=== PATIENT | male | born 1955 | race Caucasian/White ===

== ENCOUNTER 2016-08-30 09:17 | Outpatient (CLI) ==
[2013-02-04 18:54] VITALS: TEMP 97
[2015-08-29 22:05] VITALS: BMI 37.3
[2016-08-30 09:43] LABS: BASOPHILS # (AUTO) 0.1 K/uL (0-0.2); BASOPHILS % (AUTO) 0.9 % (0.0-3.0); EOSINOPHILS # (AUTO) 0.3 K/ul (0.0-0.7); EOSINOPHILS % (AUTO) 3.1 % (0.0-7.0); HEMATOCRIT 46.8 % (42.0-52.0); HEMOGLOBIN 15.2 g/dl (14.0-18.0); IMMATURE GRANULOCYTE % (AUTO) 0.5 % (0.0-5.0); LYMPHOCYTES # (AUTO) 3.1 K/uL (0.60-3.4); LYMPHOCYTES % (AUTO) 37.4 (10.0-50.0); MEAN CORPUSCULAR HEMOGLOBIN 28.2 pg (27.0-31.0); MEAN CORPUSCULAR HGB CONC 32.5 (31.8-35.4); MEAN CORPUSCULAR VOLUME 86.8 fl (80.0-94.0); MONOCYTES # (AUTO) 0.8 K/uL (0.4-2.0); MONOCYTES % (AUTO) 9.8 (0-10); NEUTROPHILS % (AUTO) 48.3; PLATELET COUNT 261 10^3/uL (140-440); RED BLOOD COUNT 5.39 10^6/ul (4.70-6.10); WHITE BLOOD COUNT 8.16 K/ul (4.2-10.2)
[2016-08-30 10:16] LABS: ERYTHROCYTE SEDIMENTATION RATE 17 mm/hr (0-15); ESR INTERNAL QC INTERNAL QC VALID
[2016-08-30 10:40] LABS: ALBUMIN 3.8 g/dL (3.4-5.0); ALBUMIN/GLOBULIN RATIO 0.97; ANION GAP 15.2; BILIRUBIN,TOTAL 0.54 mg/dL (0.00-1.20); BUN/CREATININE RATIO 12.21; CALCIUM 9.5 mg/dL (8.2-10.2); CHOL/HDL RATIO 7.8 (4.5-6.4); CREATININE 1.31 mg/dL (0.60-1.10); FOLATE 14.4 ng/mL (3.1-20.5); MAGNESIUM 2.5 mg/dL (1.7-2.2); POTASSIUM 4.2 mmol/L (3.5-5.1); TOTAL PROTEIN 7.7 g/dL (6.4-8.2)
== END 2016-08-30 09:18 | disposition home or self-care (01) ==
LOC: LAB 09:17
PROVIDERS: ATTEND Psychiatry & Neurology Neurology
DX: R51 Headache (principal); I10 Essential (primary) hypertension
CPT/HCPCS: 80053; 80061; 82607; 82746; 83735; 84439; 85025; 85651

== ENCOUNTER 2016-11-23 08:36 | Outpatient (CLI) | payer OTHER ==
[2013-02-04 18:54] VITALS: TEMP 97
[2015-08-29 22:05] VITALS: BMI 37.3
[2016-11-23 09:01] LABS: BASOPHILS # (AUTO) 0.1 K/uL (0-0.2); BASOPHILS % (AUTO) 0.5 % (0.0-3.0); EOSINOPHILS # (AUTO) 0.3 K/ul (0.0-0.7); EOSINOPHILS % (AUTO) 1.9 % (0.0-7.0); HEMATOCRIT 48.4 % (42.0-52.0); HEMOGLOBIN 16.1 g/dl (14.0-18.0); IMMATURE GRANULOCYTE % (AUTO) 0.5 % (0.0-5.0); LYMPHOCYTES # (AUTO) 2.7 K/uL (0.60-3.4); LYMPHOCYTES % (AUTO) 21.1 (10.0-50.0); MEAN CORPUSCULAR HEMOGLOBIN 28.8 pg (27.0-31.0); MEAN CORPUSCULAR HGB CONC 33.3 (31.8-35.4); MEAN CORPUSCULAR VOLUME 86.6 fl (80.0-94.0); MONOCYTES # (AUTO) 0.9 K/uL (0.4-2.0); MONOCYTES % (AUTO) 7.3 (0-10); NEUTROPHILS # (AUTO) 8.9 K/ul (2.0-6.9); NEUTROPHILS % (AUTO) 68.7; PLATELET COUNT 295 10^3/uL (140-440); RED BLOOD COUNT 5.59 10^6/ul (4.70-6.10); WHITE BLOOD COUNT 12.94 K/ul (4.2-10.2)
[2016-11-23 09:45] LABS: ALBUMIN 3.9 g/dL (3.4-5.0); ALBUMIN/GLOBULIN RATIO 1.03; ANION GAP 14.3; BILIRUBIN,TOTAL 0.4 mg/dL (0.00-1.20); BUN/CREATININE RATIO 18.38; CALCIUM 9.7 mg/dL (8.2-10.2); CHOL/HDL RATIO 5.3 (4.5-6.4); CREATININE 1.36 mg/dL (0.60-1.10); POTASSIUM 4.3 mmol/L (3.5-5.1); TOTAL PROTEIN 7.7 g/dL (6.4-8.2)
== END 2016-11-23 08:37 | disposition home or self-care (01) ==
LOC: LAB 08:36
PROVIDERS: ATTEND Emergency Medicine
DX: E11.9 Type 2 diabetes mellitus without complications (principal); E78.5 Hyperlipidemia, unspecified; I50.9 Heart failure, unspecified; N18.9 Chronic kidney disease, unspecified; I42.9 Cardiomyopathy, unspecified
CPT/HCPCS: 36415; 80053; 80061; 83036; 84443; 85025

== ENCOUNTER 2017-03-07 09:40 | Outpatient (CLI) ==
[2013-02-04 18:54] VITALS: TEMP 97
[2015-08-29 22:05] VITALS: BMI 37.3
[2017-03-07 13:26] LABS: BASOPHILS # (AUTO) 0.1 K/uL (0-0.2); BASOPHILS % (AUTO) 0.7 % (0.0-3.0); EOSINOPHILS # (AUTO) 0.3 K/ul (0.0-0.7); EOSINOPHILS % (AUTO) 3.5 % (0.0-7.0); HEMATOCRIT 45.4 % (42.0-52.0); HEMOGLOBIN 14.8 g/dl (14.0-18.0); IMMATURE GRANULOCYTE % (AUTO) 0.5 % (0.0-5.0); LYMPHOCYTES # (AUTO) 2.4 K/uL (0.60-3.4); LYMPHOCYTES % (AUTO) 28.1 (10.0-50.0); MEAN CORPUSCULAR HEMOGLOBIN 28.5 pg (27.0-31.0); MEAN CORPUSCULAR HGB CONC 32.6 (31.8-35.4); MEAN CORPUSCULAR VOLUME 87.5 fl (80.0-94.0); MONOCYTES # (AUTO) 0.8 K/uL (0.4-2.0); MONOCYTES % (AUTO) 9.1 (0-10); NEUTROPHILS # (AUTO) 4.9 K/ul (2.0-6.9); NEUTROPHILS % (AUTO) 58.1; PLATELET COUNT 239 10^3/uL (140-440); RED BLOOD COUNT 5.19 10^6/ul (4.70-6.10); WHITE BLOOD COUNT 8.37 K/ul (4.2-10.2)
[2017-03-07 13:57] LABS: ALBUMIN 3.8 g/dL (3.4-5.0); ANION GAP 18.2; BILIRUBIN,TOTAL 0.23 mg/dL (0.00-1.20); BUN/CREATININE RATIO 15.82; CALCIUM 9.4 mg/dL (8.2-10.2); CHOL/HDL RATIO 4.6 (4.5-6.4); CREATININE 1.39 mg/dL (0.60-1.10); POTASSIUM 4.2 mmol/L (3.5-5.1); TOTAL PROTEIN 7.6 g/dL (6.4-8.2)
== END 2017-03-07 09:41 | disposition home or self-care (01) ==
LOC: LAB 09:40
PROVIDERS: ATTEND Emergency Medicine
DX: I13.0 Hypertensive heart and chronic kidney disease with heart failure and stage 1 through stage 4 chronic kidney disease, or unspecified chronic kidney disease (principal); E11.22 Type 2 diabetes mellitus with diabetic chronic kidney disease; N18.9 Chronic kidney disease, unspecified; I50.9 Heart failure, unspecified; I25.10 Atherosclerotic heart disease of native coronary artery without angina pectoris
CPT/HCPCS: 36415; 80053; 80061; 83036; 84443; 85025

== ENCOUNTER 2017-06-11 06:26 | Outpatient (CLI) ==
[2015-08-29 22:05] VITALS: BMI 37.3
[2017-06-11 06:45] LABS: HEMATOCRIT 44.5 % (42.0-52.0); HEMOGLOBIN 15.1 g/dl (14.0-18.0); MEAN CORPUSCULAR HEMOGLOBIN 29.3 pg (27.0-31.0); MEAN CORPUSCULAR HGB CONC 33.9 (31.8-35.4); MEAN CORPUSCULAR VOLUME 86.2 fl (80.0-94.0); RED BLOOD COUNT 5.16 10^6/ul (4.70-6.10); WHITE BLOOD COUNT 10.28 K/ul (4.2-10.2)
[2017-06-11 07:23] LABS: ALBUMIN 3.6 g/dL (3.4-5.0); ALBUMIN/GLOBULIN RATIO 0.97; ANION GAP 15.1; BILIRUBIN,TOTAL 0.34 mg/dL (0.00-1.20); BUN/CREATININE RATIO 19.37; CALCIUM 10.1 mg/dL (8.2-10.2); CHOL/HDL RATIO 4.5 (4.5-6.4); CREATININE 1.29 mg/dL (0.60-1.10); POTASSIUM 4.1 mmol/L (3.5-5.1); TOTAL PROTEIN 7.3 g/dL (6.4-8.2)
[2017-06-11] MEDS: DOBUTAMINE 250 ML IV ONE (08:42)
[2017-06-11] MEDS: ATROPINE SULFATE PFS ONE (08:43)
--- NOTE | 2017-06-11 09:35 | NM ---
EXAM: Myocardial perfusion imaging HISTORY: Chest pain COMPARISON: Myocardial imaging on 09/21/2010 showed dilated left ventricle with low ejection fraction of 24% and diffuse hypokinesis. No reversible ischemia. Old inferior wall myocardial infarction. TECHNIQUE: Patient was injected 4.16 mCi of thallium 201 chloride intravenously while at rest. SPECT imaging of the heart was acquired. Patient was stressed using dobutamine protocol and injected 25.2 mCi of Tc99m Sestamibi intravenously. Another SPECT imaging of the heart was performed. Gated card iac study was also acquired. FINDINGS: Post stress images show dilated left ventricular cavity. There is a large old inferior wal l infarction. Myocardial perfusion is otherwise unremarkable. No evidence of reversible ischemia. Left ventricular ejection fraction is 45%. Inferior wall is almost akinetic. IMPRESSION: 1. SPECT myocardial imaging shows no evidence of reversible ischemia. 2. Old inferior wall infarct. 3. Dilated left ventricle with ejection fraction of 45%. Almost akinetic inferior wall.
--- NOTE | 2017-06-12 10:54 | DOBSTECHST ---
Ordering Physician: RUBIA CHERY Date of Test: Reason for Examination: CHF, CARDIOMYOPATHY, CAD, DM, HTN Current Medications: SIMVASTATIN, AMLODIPINE, INVOKANA, FENOFIBRATE, LANTUS, VASCEPA, CYMBALTA, CRESTOR, NITROSTAT, OMEPRAZOLE, IMITREX, METOPROLOL, ATIVAN, GABAPENTIN, NORCO Height: 72" Weight: 272 LBS Target Heart Rate: 136/161 ST Segment Stage Time HR BPM BP mmhg Rhythm +/- Up Down Comments/Symptoms Control Sitting 43 160/92 SR X NONE Dobutamine 250mg/D5W 5cmg/KG/mn 10cmg/KG/mn 3" 48 165/95 SR X NONE 15cmg/KG/mn 2" 50 158/82 SR X NONE 20cmg/KG/mn 2" 56 150/72 SR X NONE 25cmg/KG/mn 2" 65 152/70 SR X NONE 30cmg/KG/mn 2" 97 160/80 SR X .25 CC ATROPINE 35cmg/KG/mn :15 100 SR X 40cmg/KG/mn Time: 3" HR B/P Time: 6" HR B/P Time: 9" HR B/P Recovery 71 150/82 Recovery 69 145/70 Recovery 60 Total Time: 11:15 Maximum Heart Rate Reached: 100 __ Interpretation: 1. NO EVIDENCE OF ISCHEMIA BY ST-T WAVE (HEART RATE 48 BPM TO 100 BPM WITH DOBUTAMINE) 2. NO CHEST PAIN OR DISCOMFORT 3. HYPOKINETIC LEFT VENTRICLE WITH IMPROVED LEFT VENTRICULAR CONTRACTILITY WITH DOBUTAMINE INFUSION SESTAMIBI TO FOLLOW MTDD
--- NOTE | 2017-06-12 10:57 | ECHOSTRESS ---
Date of Exam: 06/11/17 Ordering Physician: RUBIA CHERY Reason for Echo: CHF, CARDIOMYOPATHY, CAD, DM, HTN, DOBUTAMINE STRESS--NO ISCHEMIA M-Mode Normal Adult Results LV Dimensions Normal Adult Results AoV Opening excursions >1.6 LVEDD-base- 3.5-5.8 Ao root dimensions 2.0-3.7 LVESD-base- 3.1-4.6 L. Atrium dimensions 1.9-3.8 Post. Wall thickness 0.8-1.1 IV septum (thickness) 0.7-1.2 Post. Wall excursion 0.72-1.3 Septal motion Systolic motion R. Ventricular cavity 1.5-2.0 LVEF 60% Paradoxical septal wall motion 2-D: HYPOKINETIC LEFT VENTRICLE AT REST WITH IMPROVED CONTRACTILITY WITH DOBUTAMINE INFUSION M-MODE: MV: AV: TV: PV: CHAMBER SIZE: WALL MOTION: HYPOKINETIC LEFT VENTRICLE AT REST WITH IMPROVED CONTRACTILITY WITH DOBUTAMINE INFUSION PERICARDIUM: INTERPRETATION: 1. HYPOKINETIC LEFT VENTRICLE AT REST WITH IMPROVED CONTRACTILITY WITH DOBUTAMINE INFUSION MTDD
== END 2017-06-11 06:27 | disposition home or self-care (01) ==
LOC: CAR 06:26
PROVIDERS: ATTEND Emergency Medicine
DX: E11.9 Type 2 diabetes mellitus without complications (principal); I50.9 Heart failure, unspecified; R06.02 Shortness of breath; I25.10 Atherosclerotic heart disease of native coronary artery without angina pectoris; E78.5 Hyperlipidemia, unspecified; I10 Essential (primary) hypertension; F41.8 Other specified anxiety disorders
CPT/HCPCS: 36415; 80053; 80061; 83036; 84443; 85027

== ENCOUNTER 2017-09-27 12:51 | Outpatient (CLI) ==
[2013-02-04 18:54] VITALS: TEMP 97
[2015-08-29 22:05] VITALS: BMI 37.3
== END 2017-09-27 12:52 | disposition home or self-care (01) ==
LOC: LAB 12:51
PROVIDERS: ATTEND Emergency Medicine
DX: E78.5 Hyperlipidemia, unspecified (principal); E11.9 Type 2 diabetes mellitus without complications; I10 Essential (primary) hypertension; F41.8 Other specified anxiety disorders; Z12.5 Encounter for screening for malignant neoplasm of prostate
CPT/HCPCS: 36415; 80053; 80061; 83036; 84443; 85025

== ENCOUNTER 2017-11-14 09:04 | Outpatient (CLI) ==
[2013-02-04 18:54] VITALS: TEMP 97
[2015-08-29 22:05] VITALS: BMI 37.3
--- NOTE | 2017-11-14 09:57 | DI ---
EXAM: Right toes, three views, 11/14/2017 HISTORY: Sore on the first digit COMPARISON: None. FINDINGS / IMPRESSION: There is a small bony fragment at the lateral aspect of the base of the proxi mal phalanx of the great toe. This can be seen on the oblique image. This appears chronic. There i s no evidence of acute fracture or dislocation. Normal anatomic alignment is maintained. Question edema or possible soft tissue defect along the undersurface of the great toe. Correlate wit h physical exam. No acute osseous abnormality.
--- NOTE | 2017-11-14 09:59 | DI ---
EXAM: Left toes three-view HISTORY: Sore on first digit COMPARISON: None FINDINGS: No fracture or dislocation. No cortical destruction identified to suggest osteomyelitis. Mild osteoarthritis first MTP joint. Small plantar calcaneal spur. No focal soft tissue abnormality. IMPERSSION: Mild osteoarthritis first MTP joint.
== END 2017-11-14 09:05 | disposition home or self-care (01) ==
LOC: RAD 09:04 → RHC-LAB 09:05
PROVIDERS: ATTEND Nurse Practitioner Family
DX: T14.8XXA Other injury of unspecified body region, initial encounter (principal); E11.621 Type 2 diabetes mellitus with foot ulcer; L84 Corns and callosities
CPT/HCPCS: 36415; 80053; 85025; 85651; 87070

== ENCOUNTER 2017-11-21 09:15 | Outpatient (CLI) | payer OTHER ==
[2013-02-04 18:54] VITALS: TEMP 97
[2015-08-29 22:05] VITALS: BMI 37.3
== END 2017-11-21 09:16 | disposition home or self-care (01) ==
LOC: WOUND 09:15
PROVIDERS: ATTEND Nurse Practitioner Family
DX: E11.621 Type 2 diabetes mellitus with foot ulcer (principal); L97.512 Non-pressure chronic ulcer of other part of right foot with fat layer exposed; L97.522 Non-pressure chronic ulcer of other part of left foot with fat layer exposed; I10 Essential (primary) hypertension; J44.9 Chronic obstructive pulmonary disease, unspecified; I50.9 Heart failure, unspecified

== ENCOUNTER 2017-11-28 08:25 | Outpatient (CLI) | payer OTHER ==
[2013-02-04 18:54] VITALS: TEMP 97
[2015-08-29 22:05] VITALS: BMI 37.3
== END 2017-11-28 08:26 | disposition home or self-care (01) ==
LOC: WOUND 08:25
PROVIDERS: ATTEND Nurse Practitioner Family
DX: E11.621 Type 2 diabetes mellitus with foot ulcer (principal); L97.512 Non-pressure chronic ulcer of other part of right foot with fat layer exposed; L97.522 Non-pressure chronic ulcer of other part of left foot with fat layer exposed; I10 Essential (primary) hypertension; J44.9 Chronic obstructive pulmonary disease, unspecified; I50.9 Heart failure, unspecified
CPT/HCPCS: 11042; 97597

== ENCOUNTER 2017-12-05 09:07 | Outpatient (CLI) | payer OTHER ==
[2013-02-04 18:54] VITALS: TEMP 97
[2015-08-29 22:05] VITALS: BMI 37.3
== END 2017-12-05 09:08 | disposition home or self-care (01) ==
LOC: WOUND 09:07
PROVIDERS: ATTEND Nurse Practitioner Family
DX: E11.621 Type 2 diabetes mellitus with foot ulcer (principal); L97.512 Non-pressure chronic ulcer of other part of right foot with fat layer exposed; L97.522 Non-pressure chronic ulcer of other part of left foot with fat layer exposed; I10 Essential (primary) hypertension; J44.9 Chronic obstructive pulmonary disease, unspecified; I50.9 Heart failure, unspecified
CPT/HCPCS: 11042; 87070; 87186; 97597; 99213

== ENCOUNTER 2017-12-07 07:39 | Outpatient (CLI) | payer OTHER ==
[2013-02-04 18:54] VITALS: TEMP 97
[2015-08-29 22:05] VITALS: BMI 37.3
--- NOTE | 2017-12-07 13:59 | NM ---
EXAM: Three-phase bone scan HISTORY: Left great toe ulcer COMPARISON: Radiographs of the left toes showed mild osteoarthritis that first metatarsal phalangeal joint. TECHNIQUE: Patient was injected 27 mCi of technetium 99m HDP intravenously. Flow study of distal low er extremities including feet were acquired, followed by blood pool images 10 minutes later and delay ed images 3 hours later. Radiographs of the right toes on 11/14/2017 showed no acute osseous abnormal ity. FINDINGS: There is a significant hyperemia in the projection of the right great toe. There is increa sed blood pool activity in this region. Delayed images demonstrate focus of increased activity invol ving the distal phalanx of the right great toe as well as distal interphalangeal joint. IMPRESSION: Findings are compatible with a focal osteomyelitis involving the distal phalanx and dista l interphalangeal joint of right great toe. Other possibility will be acute injury in this area. Ple ase correlate.
== END 2017-12-07 07:40 | disposition home or self-care (01) ==
LOC: RAD 07:39
PROVIDERS: ATTEND Nurse Practitioner Family
DX: L97.512 Non-pressure chronic ulcer of other part of right foot with fat layer exposed (principal)

== ENCOUNTER 2017-12-12 09:05 | Outpatient (CLI) ==
[2013-02-04 18:54] VITALS: TEMP 97
[2015-08-29 22:05] VITALS: BMI 37.3
== END 2017-12-12 09:06 | disposition home or self-care (01) ==
LOC: WOUND 09:05
PROVIDERS: ATTEND Nurse Practitioner Family
DX: E11.621 Type 2 diabetes mellitus with foot ulcer (principal); L97.512 Non-pressure chronic ulcer of other part of right foot with fat layer exposed; L97.522 Non-pressure chronic ulcer of other part of left foot with fat layer exposed; I10 Essential (primary) hypertension; J44.9 Chronic obstructive pulmonary disease, unspecified; I50.9 Heart failure, unspecified
CPT/HCPCS: 11042; 97597; 99213

== ENCOUNTER 2018-02-05 11:19 | Outpatient (CLI) | payer OTHER ==
[2013-02-04 18:54] VITALS: TEMP 97
[2018-01-17 08:49] VITALS: BMI 37.3
== END 2018-02-05 11:20 | disposition home or self-care (01) ==
LOC: NONPT 11:19
PROVIDERS: ATTEND Surgery Plastic and Reconstructive Surgery
DX: E11.69 Type 2 diabetes mellitus with other specified complication (principal); M86.18 Other acute osteomyelitis, other site
CPT/HCPCS: 80048; 85027

== ENCOUNTER 2018-02-19 20:24 | Outpatient (CLI) | payer OTHER ==
[2013-02-04 18:54] VITALS: TEMP 97
[2018-01-17 08:49] VITALS: BMI 37.3
== END 2018-02-19 20:25 | disposition home or self-care (01) ==
LOC: RHC-LAB 20:24
PROVIDERS: ATTEND Emergency Medicine
DX: E11.9 Type 2 diabetes mellitus without complications (principal); E78.5 Hyperlipidemia, unspecified; I10 Essential (primary) hypertension

== ENCOUNTER 2018-03-13 09:16 | Outpatient (CLI) ==
[2013-02-04 18:54] VITALS: TEMP 97
[2018-01-17 08:49] VITALS: BMI 37.3
== END 2018-03-13 09:17 | disposition home or self-care (01) ==
LOC: LAB 09:16
PROVIDERS: ATTEND Emergency Medicine
DX: E11.9 Type 2 diabetes mellitus without complications (principal); E78.5 Hyperlipidemia, unspecified; I10 Essential (primary) hypertension
CPT/HCPCS: 36415; 80061; 82043; 83036; 84443; 85025

== ENCOUNTER 2018-03-21 10:51 | Inpatient (IN) | payer OTHER ==
[2018-03-21] MEDS ORDERED: TYLENOL PO PRN (11:16)
[2018-03-21] MEDS ORDERED: NITROSTAT SL PRN (11:18)
[2018-03-21] MEDS ORDERED: ZOFRAN TAB PO PRN (11:18)
[2018-03-21 11:28] VITALS: BMI 35.4
[2018-03-21] MEDS: SODIUM CHLORIDE 1,000 ML IV SCH ×2 (11:37→23:45)
--- NOTE | 2018-03-21 14:25 | DI ---
Exam: Single view of the chest. Comparison: 06/10/2014. Reason for exam: Short of breath. FINDINGS: No pneumothorax, pleural effusion, or focal consolidation. Operative changes are seen aft er anterior cervical discectomy and fusion. The imaged osseous structures appear grossly unremarkable. The mediastinal silhouette is unchanged f rom previous exam. Impression: No acute cardiopulmonary process.
[2018-03-21] MEDS: BENTYL PO SCH ×2 (14:44→20:53)
[2018-03-21] MEDS: NEURONTIN PO SCH ×2 (14:44→20:54)
[2018-03-21] MEDS: DICLOFENAC SODIUM PO SCH (20:53)
[2018-03-21] MEDS: ENTRESTO 24 MG-26 MG TABLET PO SCH (20:53)
[2018-03-21] MEDS: ZANAFLEX PO SCH (20:54)
[2018-03-21] MEDS: PERCOCET 7.5-325 PO SCH (20:54)
[2018-03-21] MEDS: HUMULIN R SUBCUT PRN (20:54)
[2018-03-21] MEDS: NON-FORMULARY MEDICATION (Icosapent Ethyl [Vascepa] 1 GM) PO SCH (20:55)
[2018-03-21] MEDS ORDERED: NON-FORMULARY MEDICATION (Tizanidine Hcl [Zanaflex] 4 MG) PO SCH (21:00)
[2018-03-21] MEDS ORDERED: NON-FORMULARY MEDICATION (Diclofenac Sodium [Diclofenac Sodium] 75 MG) PO SCH (21:00)
[2018-03-21] MEDS ORDERED: INSULIN LISPRO SQ SCH (21:00)
[2018-03-21] MEDS ORDERED: PERCOCET 7.5-325 PO SCH (21:00)
[2018-03-22] MEDS: HUMULIN R SUBCUT PRN (06:50)
[2018-03-22] MEDS ORDERED: LANTUS SUBCUT SCH (09:00)
[2018-03-22] MEDS ORDERED: INSULIN GLARGINE HUM REC ANLOG 30 UNIT SQ SCH (09:00)
[2018-03-22] MEDS ORDERED: ISOSORBIDE MONONITRATE 30 MG PO SCH (09:00)
[2018-03-22] MEDS ORDERED: NON-FORMULARY MEDICATION (Duloxetine Hcl [Cymbalta] 60 MG) PO SCH (09:00)
[2018-03-22] MEDS ORDERED: NON-FORMULARY MEDICATION (Simvastatin [Simvastatin] 20 MG) PO SCH (09:00)
[2018-03-22] MEDS: ROCEPHIN 1 GM in SODIUM CHLORIDE 50 ML IV SCH (10:08)
[2018-03-22] MEDS: NON-FORMULARY MEDICATION (Icosapent Ethyl [Vascepa] 1 GM) PO SCH ×2 (10:08→21:35)
[2018-03-22] MEDS: ENTRESTO 24 MG-26 MG TABLET PO SCH ×2 (10:09→21:29)
[2018-03-22] MEDS: ZOCOR PO SCH (10:09)
[2018-03-22] MEDS: NON-FORMULARY MEDICATION (Canagliflozin [Invokana] 300 MG) PO SCH (10:09)
[2018-03-22] MEDS: DICLOFENAC SODIUM PO SCH ×2 (10:09→21:29)
[2018-03-22] MEDS: NEURONTIN PO SCH ×3 (10:09→21:30)
[2018-03-22] MEDS: CRESTOR PO SCH (10:10)
[2018-03-22] MEDS: TRIGLIDE PO SCH (10:10)
[2018-03-22] MEDS: IMDUR PO SCH (10:10)
[2018-03-22] MEDS: BENTYL PO SCH ×3 (10:10→21:29)
[2018-03-22] MEDS: CYMBALTA PO SCH (10:10)
[2018-03-22] MEDS: ASPIRIN EC PO SCH (10:10)
[2018-03-22] MEDS: ZANAFLEX PO SCH ×2 (10:18→21:30)
[2018-03-22] MEDS: PERCOCET 7.5-325 PO SCH ×2 (10:18→21:30)
[2018-03-22] MEDS: SODIUM CHLORIDE 1,000 ML IV SCH ×3 (10:19→16:17)
[2018-03-22] MEDS: VANCOMYCIN 1 GM in SODIUM CHLORIDE 250 ML IV SCH ×2 (11:06→21:27)
[2018-03-23] MEDS: VANCOMYCIN 1 GM in SODIUM CHLORIDE 250 ML IV SCH ×3 (06:52→20:12)
[2018-03-23] MEDS: HUMULIN R SUBCUT PRN ×3 (08:38→20:33)
[2018-03-23] MEDS: ROCEPHIN 1 GM in SODIUM CHLORIDE 50 ML IV SCH (09:32)
[2018-03-23] MEDS: ASPIRIN EC PO SCH (09:42)
[2018-03-23] MEDS: CYMBALTA PO SCH (09:42)
[2018-03-23] MEDS: BENTYL PO SCH ×3 (09:42→20:14)
[2018-03-23] MEDS: ZOCOR PO SCH (09:43)
[2018-03-23] MEDS: NEURONTIN PO SCH ×3 (09:43→20:14)
[2018-03-23] MEDS: IMDUR PO SCH (09:43)
[2018-03-23] MEDS: TRIGLIDE PO SCH (09:43)
[2018-03-23] MEDS: CRESTOR PO SCH (09:43)
[2018-03-23] MEDS: DICLOFENAC SODIUM PO SCH ×2 (09:43→20:14)
[2018-03-23] MEDS: PERCOCET 7.5-325 PO SCH ×2 (09:43→20:14)
[2018-03-23] MEDS: ZANAFLEX PO SCH ×2 (09:43→20:14)
[2018-03-23] MEDS: ENTRESTO 24 MG-26 MG TABLET PO SCH ×2 (09:43→20:14)
[2018-03-23] MEDS: NON-FORMULARY MEDICATION (Canagliflozin [Invokana] 300 MG) PO SCH (09:44)
[2018-03-23] MEDS: NON-FORMULARY MEDICATION (Icosapent Ethyl [Vascepa] 1 GM) PO SCH ×2 (09:44→20:16)
[2018-03-23] MEDS: LANTUS SUBCUT SCH (09:45)
[2018-03-23] MEDS: SODIUM CHLORIDE 1,000 ML IV SCH (23:57)
[2018-03-24] MEDS: VANCOMYCIN 1 GM in SODIUM CHLORIDE 250 ML IV SCH (06:18)
[2018-03-24] MEDS: NON-FORMULARY MEDICATION (Icosapent Ethyl [Vascepa] 1 GM) PO SCH (09:21)
[2018-03-24] MEDS: NON-FORMULARY MEDICATION (Canagliflozin [Invokana] 300 MG) PO SCH (09:22)
[2018-03-24] MEDS: ASPIRIN EC PO SCH (09:22)
[2018-03-24] MEDS: DICLOFENAC SODIUM PO SCH (09:23)
[2018-03-24] MEDS: ZOCOR PO SCH (09:23)
[2018-03-24] MEDS: BENTYL PO SCH ×2 (09:23→16:24)
[2018-03-24] MEDS: ENTRESTO 24 MG-26 MG TABLET PO SCH (09:23)
[2018-03-24] MEDS: CRESTOR PO SCH (09:23)
[2018-03-24] MEDS: CYMBALTA PO SCH (09:23)
[2018-03-24] MEDS: TRIGLIDE PO SCH (09:24)
[2018-03-24] MEDS: IMDUR PO SCH (09:24)
[2018-03-24] MEDS: ROCEPHIN 1 GM in SODIUM CHLORIDE 50 ML IV SCH (09:25)
[2018-03-24] MEDS: LANTUS SUBCUT SCH (09:25)
[2018-03-24] MEDS: PERCOCET 7.5-325 PO SCH (09:25)
[2018-03-24] MEDS: NEURONTIN PO SCH ×2 (09:25→16:24)
[2018-03-24] MEDS: ZANAFLEX PO SCH (09:25)
[2018-03-24] MEDS: HUMULIN R SUBCUT PRN (12:42)
[2018-03-24] MEDS ORDERED: VANCOMYCIN 750 MG in SODIUM CHLORIDE 250 ML IV SCH (13:00)
[2018-03-24 13:40] VITALS: BP 107/66; TEMP 97.9
--- NOTE | 2018-03-24 15:18 | PCM.HOSP ---
- Initial Hospital Care [id number] 70 Minutes Bedside ([id number]): 03/21 - Subsequent Care [id number] 35 Minutes per Day ([id number]): 03/22. 03/23 - Hospital Discharge [id number] More than 30 Minutes ([id number]): 03/24
--- NOTE | 2018-03-27 14:58 | DS ---
DATE OF SERVICE: 03/24/18 FINAL DIAGNOSIS: 1. Status post hypotension and symptomatic bradycardia most likely from Metoprolol 2. Right great toe osteomyelitis 3. Left leg cellulitis which is better 4. CAD 5. CHF 6. Diabetes 7. Hypertension 8. COPD 9. Sleep apnea. DISCHARGE INSTRUCTIONS: Discharge the patient home. Followup in the [facility] within 4-5 days. Continue the rest of the home medications. MEDICATIONS AT DISCHARGE: Invokana Diclofenac Cymbalta Triglide Vascepa Lantus Crestor Entresto Simvastatin Aspirin Neurontin Isosorbide Oxycodone Zanaflex Zofran NEW PRESCRIPTIONS: Clindamycin 300mg three times a day for 5 days. DIET INSTRUCTIONS: Cardiac and healthy diet ACTIVITY: As much as tolerated DISEASE SPECIFIC EDUCATION: Medication side effects Hypoglycemia been discussed Told not to take the Metoprolol anymore HOSPITAL COURSE: Mahamed Toscano who was seen at the [facility] on the day of admission blood pressure 66 systolic so the patient was sent to the office and the office blood pressure was 73/66. At that time the patient was admitted to the hospital and heart rate was 44. Metoprolol was held and IV fluids were given. Gradually the blood pressure came up and the heart rate came up to 63, 61 and 60 and not having any problems. The yesterday had some redness in the left castorena but today it disappeared. The patient also found to have UTI, Klebsiella Oxytoca. Bactrim is sensitive for the wound culture, Proteus Mirabilis. We will put the patient on Bactrim and send the patient home. Advised the patient not to take the Metoprolol. Followup in the [facility] within 5-7 days. TIME SPENT: MORE THAN 65 MINUTES JAVIER
--- NOTE | 2018-03-27 15:05 | PN ---
DATE OF SERVICE: 03/23/18 SUBJECTIVE: The patient was admitted with the hypotension, light headedness, urinary tract infection and right foot osteomyelitis. The patient started having the left leg swelling and redness. REVIEW OF SYSTEMS: CONSTITUTIONAL: No fever, no chills. HEENT: Normal. ENDOCRINE: No weight gain, no weight loss. CVS: No angina symptoms. No CHF symptoms. No palpitations. No atypical chest pain for CAD. No shortness of breath. No PND, no orthopnea. RESPIRATORY: No cough, no hemoptysis. GI: No nausea, no vomiting. No abdominal pain. : No hematuria. No polyuria. MUSCULOSKELETAL: No joint swelling. PSYCHIATRIC: Not anxious. No depression. No suicidal thoughts. No homicidal thoughts. SKIN: Intact. No rash. PHYSICAL EXAMINATION: V/S: Blood pressure 116/71, respiratory rate 18, heart rate 60, temperature 97.5 with saturation 96%. HEENT: Normocephalic, atraumatic. Mucosa dry. Pallor positive. No icterus. GENERAL: Obese man laying in the bed, right foot ulcer 1.5cm x 1cm deep with healthy granulation tissue, left leg area on the left dorsum of the castorena is all redness and tenderness is present. NECK: Supple. No JVD, no carotid bruit. No lymphadenopathy. LUNGS: Clear to auscultation. No rales or rhonchi. HEART: S1, S2 normal. No S3. No murmur, gallop or regurgitation. ABDOMEN: Soft, nontender. Bowel sounds active. No rigidity. No rebound or guarding. No CVA tenderness. EXTREMITIES: No cyanosis, clubbing or pedal edema. MUSCULOSKELETAL: No joint swelling. NEUROLOGIC: Awake, alert. No focal deficit. LYMPHATIC: No lymph nodes palpable. SKIN: Intact. LABS: WBC 9.02, hgb 12.2, hct 37.9, plt count 268, sodium 138, potassium 3.8, chloride 104, bicarb 26, BUN 19, creatinine 1.35 and glucose 155. ASSESSMENT: 1. Status post severe hypotension mostly from the medication 2. Status post sinus bradycardia from the Beta Blockers 3. Right big toe osteomyelitis 4. Left leg cellulitis 5. UTI organism Klebsiella Oxytoca 6. Diabetes 7. Hypertension 8. Dyslipidemia 9. CAD 10.CHF PLAN: 1. Continue the Rocephin, Vancomycin 2. Accu-checks with coverage 3. IV fluids TIME SPENT: More than 35 minutes MTDD
--- NOTE | 2018-03-27 15:20 | PN ---
DATE OF SERVICE: 03/22/18 SUBJECTIVE: The patient was admitted from the office with severe hypotension. The patient was on the Beta Oly and it has been on hold. The blood pressure came up to 115/58 and heart rate is around 44-49. REVIEW OF SYSTEMS: CONSTITUTIONAL: No fever, no chills. HEENT: Normal. ENDOCRINE: No weight gain, no weight loss. CVS: No angina symptoms. No CHF symptoms. No palpitations. No atypical chest pain for CAD. No shortness of breath. No PND, no orthopnea. RESPIRATORY: No cough, no hemoptysis. GI: No nausea, no vomiting. No abdominal pain. : No hematuria. No polyuria. MUSCULOSKELETAL: No joint swelling. PSYCHIATRIC: Not anxious. No depression. No suicidal thoughts. No homicidal thoughts. SKIN: Intact. No rash. PHYSICAL EXAMINATION: V/S: Blood pressure 115/58, respiratory rate 20, heart rate 61 and temperature 97.9 with saturation 96%. HEENT: Normocephalic, atraumatic. Mucosa dry. Pallor positive. GENERAL: Obese man laying in the bed. NECK: Supple. No JVD, no carotid bruit. No lymphadenopathy. LUNGS: Clear to auscultation. No rales or rhonchi. HEART: S1, S2 normal. No S3. No murmur, gallop or regurgitation. ABDOMEN: Soft, nontender. Bowel sounds active. No rigidity. No rebound or guarding. No CVA tenderness. EXTREMITIES: No cyanosis, clubbing or pedal edema. Right great toe ulcer 1cm deep and 1.5-2cm circular healthy granulation tissue. MUSCULOSKELETAL: No joint swelling. NEUROLOGIC: Awake, alert. No focal deficit. LYMPHATIC: No lymph nodes palpable. SKIN: Intact. LABS: Sodium 132, potassium 3.9, chloride 107,bicarb 21, BUN 21, creatinine 1.16, glucose 158, WBC 10.93, hgb 11.5, hct 35.8, plt count 244. ASSESSMENT: 1. Status post hypotension from medication 2. Sinus bradycardia from medication side effects, Beta Oly 3. Right foot osteomyelitis 4. Diabetes 5. Hypertension 6. Dyslipidemia 7. CAD 8. CHF PLAN: 1. Continue the Rocephin, Vancomycin 2. IV fluids 3. No Beta Blockers at this time. TIME SPENT: More than 35 minutes MTDD
== END 2018-03-24 16:40 | disposition home or self-care (01) | DRG 540 ==
LOC: MEDSURG B 10:51
PROVIDERS: ADMIT Emergency Medicine; ATTEND Emergency Medicine
DX: M86.8X8 Other osteomyelitis, other site (principal); N39.0 Urinary tract infection, site not specified; I25.10 Atherosclerotic heart disease of native coronary artery without angina pectoris; I50.9 Heart failure, unspecified; I10 Essential (primary) hypertension; E11.9 Type 2 diabetes mellitus without complications; E78.5 Hyperlipidemia, unspecified; J44.9 Chronic obstructive pulmonary disease, unspecified; G47.30 Sleep apnea, unspecified; R00.1 Bradycardia, unspecified; Z79.4 Long term (current) use of insulin
CPT/HCPCS: 36415; 80053; 80202; 81001; 82550; 82962; 84484; 85025; 87070; 87086; 87186; 99223; 99233; 99239

== ENCOUNTER 2018-05-10 12:05 | Outpatient (CLI) | payer OTHER ==
[2013-02-04 18:54] VITALS: TEMP 97
--- NOTE | 2018-05-10 15:32 | DI ---
EXAM: Chest two views HISTORY: Chronic obstructive pulmonary disease with acute exacerbation COMPARISON: 03/21/2018 TECHNIQUE: Two views of the chest were performed FINDINGS: The lungs are clear. There is no pleural effusion or pneumothorax. The heart is normal i n size. The mediastinal contour is normal. There are no acute abnormalities of the bones. Cervical spinal fusion hardware. IMPRESSION: No acute cardiopulmonary process.
== END 2018-05-10 12:06 | disposition home or self-care (01) ==
LOC: RAD 12:05
PROVIDERS: ATTEND Nurse Practitioner Family
DX: J44.1 Chronic obstructive pulmonary disease with (acute) exacerbation (principal); J06.9 Acute upper respiratory infection, unspecified; R06.02 Shortness of breath; I10 Essential (primary) hypertension; E11.9 Type 2 diabetes mellitus without complications; E78.5 Hyperlipidemia, unspecified
CPT/HCPCS: 36415; 80053; 85025

== ENCOUNTER 2018-06-05 12:37 | Outpatient (CLI) | payer OTHER ==
[2013-02-04 18:54] VITALS: TEMP 97
[2018-06-05] MEDS: ALBUTEROL 0.083% NEB NEB STA (12:55)
== END 2018-06-05 12:38 | disposition home or self-care (01) ==
LOC: CAR 12:37
PROVIDERS: ATTEND Nurse Practitioner Family
DX: I50.9 Heart failure, unspecified (principal); J47.9 Bronchiectasis, uncomplicated; J45.909 Unspecified asthma, uncomplicated; J44.9 Chronic obstructive pulmonary disease, unspecified